=== PATIENT | female | born 1965 | race Caucasian/White ===

== ENCOUNTER → 2017-07-05 | Outpatient (CLI) | payer OTHER ==
[2014-09-07 10:04] VITALS: BMI 32.9
[~2017-07-05] MED LIST: AMIT-108 PO; ARI2 PO; CANA100T PO; CIT20 PO; CYCL10TA29 PO; EMPA25TA PO; GAB300 PO; GABA-549 PO; HYDR-2966 PO; HYDR-393 PO; IBUP800T37 PO; LOSA100T67 PO; LOSA100T68 PO; METF-420 PO; METO-221 PO; METXR500 PO; MORP-51 PO; MULT-865 PO; MULT1TAB54 PO; PRAV20TA65 PO; PRAV20TA66 PO; RANI-320 PO; THIA100T62 PO; TRAM100T30 PO; VENL75CA58 PO; [UNRECOGNIZED DRUG - CODE] PO
--- NOTE | 2017-07-06 08:29 | RADIOLOGY IMAGING REPORT ---
FACILITY: [facility] [place] PATIENT NAME: PABLO ORTEZ : [id number] MR: [id number] V: [id number] EXAM DATE: ORDERING PHYSICIAN: ROMÁN RODRIGUEZ TECHNOLOGIST: Rossana Leonardo PROCEDURE:BILATERAL DIGITAL SCREENING MAMMOGRAM WITH CAD ASSISTED INTERPRETATION AND 3D BREAST TOMOSYNTHESIS. COMPARISON:Prior mammograms dated 07/12/14, 10/31/12 and06/10/11. INDICATIONS:SCREENING FINDINGS: A small amount of fibroglandular tissue is seen throughout the breasts. The parenchymal pattern has remained stable when allowing for difference in mammographic technique and patient positioning. There is no evidence of malignant appearing mass, malignant appearing calcification or other secondary sign of malignancy in either breast. DIAGNOSTIC CATEGORY 1--NEGATIVE. RECOMMENDATIONS: ROUTINE MAMMOGRAM AND CLINICAL EVALUATION. IMPRESSION: Bi-RADS 1: No significant abnormality is seen. Images were reviewed with R2CAD and 3D breast tomosynthesis. Dictated by: Layla Wiggins M.D. on 07/05/2017 at 16:51 Transcribed by: VANITA on 07/05/2017 at 18:21 Approved by: Layla Wiggins M.D. on 07/06/2017 at 8:28 [facility]
== END ==
LOC: MAMO 01:35
PROVIDERS: ATTEND Physician Assistant
DX: Z12.31 Encounter for screening mammogram for malignant neoplasm of breast (principal)
CPT/HCPCS: 77063; 77067

== ENCOUNTER → 2018-07-04 | Outpatient (REF) | payer OTHER ==
[2014-09-07 10:04] VITALS: BMI 32.9
[~2018-07-04] MED LIST changes: -LOSA100T67 PO; +LOSA100T75 PO; -METF-420 PO; +METF-452 PO
== END ==
LOC: ZZSENDIN 09:27
PROVIDERS: ATTEND Physician Assistant
DX: E87.6 Hypokalemia (principal)
CPT/HCPCS: 82310; 82374; 82435; 82565; 82947; 84132; 84295; 84520